=== PATIENT | female | born 1955 | race Caucasian/White ===

== ENCOUNTER 2018-02-16 09:20 | Day surgery (SDC) | payer BC, OTHER ==
[2018-02-12 18:44] VITALS: BMI 26.2
[~2018-02-16 09:20] MED LIST: LACTATED RINGERS 1,000 ML IV SCH; LIDOCAINE 1% 20 ML VIAL (10MG/ML) FOR IV START INTRADERMA PRN
[2018-02-16 09:38] VITALS: RESP 18; TEMP 98.2
[2018-02-16] MEDS ORDERED: LACTATED RINGERS 1,000 ML IV ONE (09:39)
[2018-02-16] MEDS ORDERED: GLYCOPYRROLATE 0.2 MG/ML 2 ML VIAL ONE (10:21)
[2018-02-16] MEDS ORDERED: LIDOCAINE 1% INJ 10MG/ML (20 ML MDV) ONE (10:21)
[2018-02-16] MEDS ORDERED: PROPOFOL 10 MG/ML 20 ML VIAL IV ONE (10:21)
--- NOTE | 2018-02-16 10:31 | P.GSHP ---
History of Present Illness H&P Date: 02/16/18 Chief Complaint: GERD, dysphagia This a 62-year-old female referred from Dr. Grace dent. Patient is today for EGD. She's had issues with GERD and dysphagia. Past Medical History Past Medical History: Cancer, Fibromyalgia, GERD/Reflux, Hyperlipidemia Additional Past Medical History / Comment(s): LT BREAST CA 1999 EST, HAD CHEMO W / SURGERY. MIGRAINES. History of Any Multi-Drug Resistant Organisms: None Reported Past Surgical History: Breast Surgery, Orthopedic Surgery, Tonsillectomy, Tubal Ligation Additional Past Surgical History / Comment(s): LT BREAST CA MASTECTOMY; RT BREAST MASTECTOMY PROPHYLAXSIS; RECONSTRUCTION OSCAR BREASTS. RT KNEE X3, HX FX KNEECAP, HARDWARE REMOVAL. TUMMY TUCK. COLONOSCOPY. Past Anesthesia/Blood Transfusion Reactions: Motion Sickness Smoking Status: Former smoker - Past Family History Mother Family Medical History: No Reported History Medications and Allergies Home Medications Medication Instructions Recorded Confirmed Type Butalb/Acetaminophen/Caffeine 1 - 2 cap PO Q4HR PRN 02/12/18 02/12/18 History [Fioricet 50-300-40 mg Capsule] Cholecalciferol [Vitamin D3] 5,000 unit PO DAILY 02/12/18 02/16/18 History Dextroamphetamine/Amphetamine 5 mg PO DAILY 02/12/18 02/16/18 History [Adderall] Esomeprazole Magnesium [NexIUM] 20 mg PO DAILY 02/12/18 02/16/18 History Femheart 1 tab PO DAILY 02/12/18 02/16/18 History Fluticasone Propionate [Flonase 1 spray EA NOSTRIL DAILY PRN 02/12/18 02/16/18 History Allergy Relief] Ibuprofen [Motrin] 800 mg PO Q8H PRN 02/12/18 02/16/18 History Loratadine [Alavert] 10 mg PO DAILY PRN 02/12/18 02/16/18 History PARoxetine HCL [Paxil] 40 mg PO DAILY 02/12/18 02/16/18 History Pregabalin [Lyrica] 50 mg PO BID 02/12/18 02/16/18 History Ranitidine HCl [Zantac] 150 mg PO DAILY PRN 02/12/18 02/16/18 History SUMAtriptan SUCCINATE [Imitrex] 100 mg PO DAILY PRN 02/12/18 02/16/18 History Simvastatin [Zocor] 80 mg PO DAILY 02/12/18 02/16/18 History Zolpidem [Ambien] 10 mg PO HS PRN 02/12/18 02/16/18 History clonazePAM [KlonoPIN] 0.25 mg PO HS PRN 02/12/18 02/16/18 History guaiFENesin [Mucinex] 600 mg PO DAILY PRN 02/12/18 02/16/18 History Allergies Allergy/AdvReac Type Severity Reaction Status Date / Time No Known Allergies Allergy Verified 02/12/18 18:17 Surgical - Exam Vital Signs Temp Pulse Resp BP Pulse Ox 98.2 F 102 H 18 131/70 98 02/16/18 09:37 02/16/18 09:37 02/16/18 09:37 02/16/18 09:37 02/16/18 09:37 - General well developed, no distress - Eyes PERRL - ENT normal pinna - Neck no masses - Respiratory normal expansion - Cardiovascular Rhythm: regular - Abdomen Abdomen: soft, non tender Assessment and Plan Assessment: GERD, dysphagia. We'll perform EGD.
--- NOTE | 2018-02-16 10:42 | P.OP ---
Date of Procedure: 02/16/18 Preoperative Diagnosis: GERD Postoperative Diagnosis: Antral gastritis No evidence of hiatal hernia Mild esophagitis Procedure(s) Performed: EGD Anesthesia: MAC Surgeon: Maverick Manrique Pathology: other (Antral, esophagus) Condition: stable Disposition: PACU Description of Procedure: The patient's placed on the endoscopy table in the lateral position. She received IV sedation. The gastroscope placed oropharynx passed in the esophagus and stomach. Scope was then placed through the pylorus. First and second portion of duodenum. Normal. Scope was then brought back the antrum and this appeared mildly inflamed. A biopsies was performed. Scope was then brought back and the stomach and retroflexed. The remainder some appeared normal. There is known to hiatal hernia. The GE junction was at 40 cm. The distal esophagus appeared mildly inflamed a biopsies performed. The proximal esophagus appeared normal. Scope was then withdrawn for patient.
[2018-02-16 10:57] VITALS: BP 105/70; PULSE 96
== END 2018-02-16 11:30 | disposition home or self-care (01) ==
LOC: ORWHC2ENDO 09:20
PROVIDERS: ATTEND Surgery
DX: K21.0 Gastro-esophageal reflux disease with esophagitis (principal); K29.50 Unspecified chronic gastritis without bleeding; M79.7 Fibromyalgia; E78.5 Hyperlipidemia, unspecified; G43.909 Migraine, unspecified, not intractable, without status migrainosus; F41.9 Anxiety disorder, unspecified; F32.9 Major depressive disorder, single episode, unspecified; F90.9 Attention-deficit hyperactivity disorder, unspecified type; Z85.3 Personal history of malignant neoplasm of breast; Z92.21 Personal history of antineoplastic chemotherapy; Z90.13 Acquired absence of bilateral breasts and nipples; Z79.51 Long term (current) use of inhaled steroids; Z79.899 Other long term (current) drug therapy; Z98.51 Tubal ligation status; Z87.891 Personal history of nicotine dependence
CPT/HCPCS: 88305; 43239; J2001; J2704

== ENCOUNTER → 2021-12-10 | Outpatient (CLI) | payer MEDICARE ==
--- NOTE | 2021-12-11 03:09 | MR ---
EXAMINATION TYPE: MR shoulder RT wo con DATE OF EXAM: 12/10/2021 COMPARISON: None HISTORY: Right shoulder pain for 6 months Multiplanar multi echo imaging of the right shoulder without contrast. There is moderate shoulder joint effusion. The subscapularis tendon is intact. Biceps tendon appears intact. Glenoid yovanny appear intact. There is some atrophy of the supraspinatus muscle. There is a la rge rotator cuff tear with retraction of the supraspinatus tendon. There is spurring at the AC joint and mild subacromial impingement. There is fluid in the subdeltoid space. No fracture seen. The infra spinatus tendon appears intact. IMPRESSION: Very large rotator cuff tear with retraction of the supraspinatus tendon. Shoulder joint effusion and subdeltoid effusion.
== END | disposition home or self-care (01) ==
LOC: RADMRIMAIN 18:55
PROVIDERS: ATTEND Orthopaedic Surgery
DX: M75.101 Unspecified rotator cuff tear or rupture of right shoulder, not specified as traumatic (principal); M25.411 Effusion, right shoulder

== ENCOUNTER → 2022-08-18 | Outpatient (CLI) | payer MEDICARE ==
--- NOTE | 2022-08-18 15:36 | P.SLEEP ---
History of Present Illness DATE: 08/18/2022 CONSULTATION/NEW PATIENT EVALUATION HISTORY OF PRESENT ILLNESS/SLEEP-WAKE EVALUATION: 66-year-old lady had been ev aluated in the sleep center for possible obstructive sleep apnea hypopnea syndrome. Oximetry test showed oxygen desaturation during sleep. SLEEP SCHEDULE: Usually sleep schedule from 10 PM to 5 AM 7 days a week. FALLING ASLEEP: Sometimes patient has problems with the falling asleep, has TV set and bedroom. DURING SLEEP: Patient snores and wakes up from sleep several times with 2 episodes of nocturia. Positive history of moving during the sleep. Positive history of grinding teeth, heartburn, and awakenings with dry mouth during sleep. No history of hypnogogical hallucinations, sleep paralysis, or cataplexy. DURING THE DAY/WAKE STATE: In the morning patient wake up tired, has difficulties to pay attention. Positive history of episodes of depression and anxiety. Pala sleepiness scale is 6. Usually patient doesn't take naps. PAST MEDICAL HISTORY: Chronic fatigue, headaches, hyperlipidemia, right breast cancer. PAST SURGICAL HISTORY: Bilateral mastectomy with reconstruction, tonsillectomy, right knee surgery. MEDICATIONS: Nexium 40 mg once a day, Paxil 40 mg once a day, clonazepam 0.5 mg 2 tablets at bedtime. SOCIAL HISTORY: Positive history of smoking in the past, quit about 30 years ago, alcohol consumption occasional. FAMILY HISTORY: Hypertension, stroke, asthma, anemia, diabetes, restless legs. REVIEW OF SYSTEMS: Snoring, multiple awakenings from sleep. No fevers. No double vision. No recent chest pain. No shortness of breath. No abdominal pain. No bleeding episodes. No blood in urine. No seizure episodes. PHYSICAL EXAMINATION: GENERAL: A pleasant patient without any distress. VITAL SIGNS: BP 132/85, HR 102, RR 16, weight 158 pounds, height 5 foot 3-1/4 inches, body mass index 27.6. HEENT: PERRLA, EOMI. Evaluation of oropharynx showed tongue protrudes midline, low position of soft palate Mallampati 34. NECK: Supple. No JVD. Thyroid is not palpable. 15.5 inches in circumference. LUNGS: Clear to percussion and to auscultation. Good air exchange. No wheezing or rhonchi. HEART: S1, S2 regular. No murmurs, gallops or rubs. ABDOMEN: Soft and nontender. Bowel sounds are present. No organomegaly appreciated. EXTREMITIES: No clubbing or cyanosis. MICA BUILDER: Awake, alert, and oriented x3. Cranial nerves 2 to 7 intact. There is no fasciculation or atrophy noted. No focal deficits observed. ASSESSMENT: 1. Snoring, multiple awakenings from sleep, low position of soft palate Mallampati 34, tiredness and sleepiness during the day. Obstructive sleep apnea hypopnea syndrome. 2. Headaches. 3. History of fibromyalgia. 4. History of right-sided breast cancer, status post bilateral mastectomy with reconstruction surgery. 5 status post tonsillectomy. 6 . Status post right knee surgery. 7. Hyperlipidemia. 8. History of episodes of anxiety and depression. PLAN: 1. Polysomnography for evaluation of patient's breathing during sleep. 2. CPAP/BiPAP titration if sleep study confirms obstructive sleep apnea- hypopnea syndrome. 3. Preferable position during sleep on the side. 4. No driving if patient feels any sleepiness. Patient is aware of civil and criminal liability for unsafe driving. 5. Sleep hygiene with regular sleep time for at least 7.5-8 hours. 6. Watching weight. Thank you very much for referring this patient for consultation. Sincerely, Florencio Osorio MD, PhD, FAASM. Diplomat of [employer], Sleep Medicine Board by [place] [facility] [place] Past Medical History Past Medical History: Cancer, Fibromyalgia, GERD/Reflux, Hyperlipidemia Additional Past Medical History / Comment(s): LT BREAST CA 1999 EST, HAD CHEMO W/ SURGERY. MIGRAINES. History of Any Multi-Drug Resistant Organisms: None Reported Past Surgical History: Breast Surgery, Orthopedic Surgery, Tonsillectomy, Tubal Ligation Additional Past Surgical History / Comment(s): LT BREAST CA MASTECTOMY; RT BREAST MASTECTOMY PROPHYLAXSIS; RECONSTRUCTION OSCAR BREASTS. RT KNEE X3, HX FX KNEECAP, HARDWARE REMOVAL. TUMMY TUCK. COLONOSCOPY. Past Anesthesia/Blood Transfusion Reactions: Motion Sickness Past Psychological History: ADD/ADHD, Anxiety, Depression, Panic Disorder Past Alcohol Use History: Occasional Additional Past Alcohol Use History / Comment(s): SMOKED SOCIALLY 15 YEARS, QUIT 1998 EST. Past Drug Use History: None Reported - Past Family History Mother Family Medical History: No Reported History Medications and Allergies Home Medications Medication Instructions Recorded Confirmed Type Butalb/Acetaminophen/Caffeine 1 - 2 cap PO Q4HR PRN 02/12/18 02/12/18 History [Fioricet 50-300-40 mg Capsule] Cholecalciferol [Vitamin D3] 5,000 unit PO DAILY 02/12/18 02/16/18 History Dextroamphetamine/Amphetamine 5 mg PO DAILY 02/12/18 02/16/18 History [Adderall] Esomeprazole Magnesium [NexIUM] 20 mg PO DAILY 02/12/18 02/16/18 History Femheart 1 tab PO DAILY 02/12/18 02/16/18 History Fluticasone Propionate [Flonase 1 spray EA NOSTRIL DAILY PRN 02/12/18 02/16/18 History Allergy Relief] Ibuprofen [Motrin] 800 mg PO Q8H PRN 02/12/18 02/16/18 History Loratadine [Alavert] 10 mg PO DAILY PRN 02/12/18 02/16/18 History PARoxetine HCL [Paxil] 40 mg PO DAILY 02/12/18 02/16/18 History Pregabalin [Lyrica] 50 mg PO BID 02/12/18 02/16/18 History Ranitidine HCl [Zantac] 150 mg PO DAILY PRN 02/12/18 02/16/18 History SUMAtriptan succinate [Imitrex] 100 mg PO DAILY PRN 02/12/18 02/16/18 History Simvastatin [Zocor] 80 mg PO DAILY 02/12/18 02/16/18 History Zolpidem [Ambien] 10 mg PO HS PRN 02/12/18 02/16/18 History clonazePAM [KlonoPIN] 0.25 mg PO HS PRN 02/12/18 02/16/18 History guaiFENesin [Mucinex] 600 mg PO DAILY PRN 02/12/18 02/16/18 History Allergies Allergy/AdvReac Type Severity Reaction Status Date / Time No Known Allergies Allergy Verified 02/12/18 18:17 Sleep Note - Sleep Note Sleep Note: Temperature: Pulse Rate: Respiratory Rate: Blood Pressure: SpO2: Height: Weight: BMI: Neck Circumference:
== END ==
LOC: SLEEP 14:33
PROVIDERS: ATTEND Internal Medicine
DX: G47.33 Obstructive sleep apnea (adult) (pediatric) (principal); R51.9 Headache, unspecified; E78.5 Hyperlipidemia, unspecified; Z87.39 Personal history of other diseases of the musculoskeletal system and connective tissue; Z98.890 Other specified postprocedural states; F41.9 Anxiety disorder, unspecified; F32.A Depression, unspecified; Z90.12 Acquired absence of left breast and nipple; Z90.11 Acquired absence of right breast and nipple; Z87.891 Personal history of nicotine dependence
CPT/HCPCS: 99211

== ENCOUNTER → 2024-03-14 | Outpatient (CLI) | payer MEDICARE ==
--- NOTE | 2024-03-14 13:36 | MR ---
EXAMINATION TYPE: MR shoulder RT wo con DATE OF EXAM: 03/14/2024 COMPARISON: 12/10/2021 HISTORY: Rt shoulder pain TECHNIQUE: Multiplanar, multisequence imaging of the right shoulder is performed without contrast. FINDINGS: There has been significant interval progression of the rotator cuff tears described previously. There are now complete full-thickness tears of both the infraspinatus and supraspinatus tendons with marke d retraction of the musculotendinous junctions and muscular atrophy. There is marked superior subluxa tion of the glenohumeral joint with impaction of the humeral head and the inferior aspect of the acro mium. There is moderate degenerative change of the AC joint. There is a small glenohumeral joint effu celine. There is a tear of the superior cartilaginous labrum consistent with a SLAP injury The biceps tendon is normal in position within the bicipital groove. The biceps tendon appears atroph ic. The subscapularis tendon is intact There is mild subcutaneous deltoid bursitis. There are subchondral changes in the medial humeral head secondary to subluxation and degeneration. IMPRESSION: 1. Significant degeneration of the right shoulder joint compared to the prior study. 2. Complete full-thickness tears of the supraspinatus and infraspinatus tendons with marked retractio n of the musculotendinous junctions muscular atrophy. 3. Marked superior subluxation of the glenohumeral joint and small joint glenohumeral joint effusion. Moderate osteoarthritis of the glenohumeral joint. 4. Moderate degeneration of the AC joint. 5. SLAP injury. Atrophy of the biceps tendon demonstrates mild some deltoid bursitis.
== END | disposition home or self-care (01) ==
LOC: RADMRIMAIN 07:51
PROVIDERS: ATTEND Orthopaedic Surgery Orthopaedic Trauma
DX: S46.011A Strain of muscle(s) and tendon(s) of the rotator cuff of right shoulder, initial encounter (principal); M62.50 Muscle wasting and atrophy, not elsewhere classified, unspecified site; M19.011 Primary osteoarthritis, right shoulder

== ENCOUNTER → 2024-05-22 | Outpatient (CLI) | payer MEDICARE ==
--- NOTE | 2024-05-22 10:30 | CT ---
EXAMINATION TYPE: CT shoulder RT wo con DATE OF EXAM: 05/22/2024 COMPARISON: MRI 124 HISTORY: Osteoarthritis of right shoulder CT DLP: 453 mGycm Automated exposure control for dose reduction was used. FINDINGS: Generalized demineralization with multilevel hypertrophic and degenerative changes of the spine. Mild sternoclavicular joint arthropathy. The humeral head is high riding in position which can be a secondary indicator of rotator cuff tear. Bony density along the upper margin of the glenoid can be associated with chronic labral tear. There is moderate glenohumeral joint space narrowing. No erosive changes. Moderate AC joint arthropathy. Correlate for impingement. Incidental note made of previous breast implant surgery. Coronary artery calcification calcification of the thoracic aorta. Subsegmental scarring or atelectasis in the lung bases bilaterally. IMPRESSION: 1. Moderate AC joint arthropathy. Correlate for impingement. 2. Moderate glenohumeral joint arthropathy with high riding position of the humeral head also is asso ciated with rotator cuff tear. 3. Bony density along the upper margin of the glenoid can be seen with chronic labral tear. [facility], Workstation: [id number], 05/22/2024 10:28 AM
== END | disposition home or self-care (01) ==
LOC: RADCTMAIN 09:08
PROVIDERS: ATTEND Orthopaedic Surgery
DX: M19.011 Primary osteoarthritis, right shoulder